=== PATIENT | male | born 1965 | race African-American/Black ===

== ENCOUNTER 2017-04-13 10:18 | Day surgery (SDC) | payer BC ==
[2017-04-12 13:21] VITALS: BMI 23.0
[2017-04-13 10:45] VITALS: TEMP 98.2
[2017-04-13] MEDS ORDERED: PROPOFOL 20 ML ONE ×2 (10:46)
[2017-04-13 12:36] VITALS: BP 107/67; PULSE 69
== END 2017-04-13 12:45 | disposition home or self-care (01) ==
LOC: FASU-ENDO 10:18
PROVIDERS: ATTEND Internal Medicine Gastroenterology
PROC: 0DJD8ZZ Inspection of Lower Intestinal Tract, Via Natural or Artificial Opening Endoscopic (ICD-10-PCS; principal; 2017-04-13 11:49)
DX: Z12.11 Encounter for screening for malignant neoplasm of colon (principal); K64.0 First degree hemorrhoids